=== PATIENT | female | born 1985 | race Caucasian/White ===

== ENCOUNTER 2018-05-14 01:54 | Observation (INO) | payer OTHER ==
[~2018-05-14] VITALS: Ht 149.9 cm; Wt 46.7 kg
[2018-05-14] VITALS (128 sets, daily range): BP systolic 82–100; BP diastolic 41–59; PULSE 111–119; TEMP 97.9; O2SAT 92–99
[2018-05-14 02:10] LABS: BASO # 0.1 (0.0-0.2); BASO % 0.8 % (0.0-2.0); EOS # 0.3 (0.0-0.7); EOS % 3.5 % (0-4.0); GRAN # 4.2 (1.4-6.5); GRAN % 49.9 % (42.2-75.2); HEMATOCRIT 39.3 % (37.0-47.0); HEMOGLOBIN 13.5 g/dl (12.5-16.0); LYMPH % 35.4 % (20.0-51.0); MEAN CELL VOLUME 94 fl (80.0-100.0); MEAN CORPUSCULAR HEMOGLOBIN 32 pg (27.0-31.0); MEAN CORPUSCULAR HGB CONC 34 g/dl (33.0-37.0); MEAN PLATELET VOLUME 9.9 fl (7.4-10.4); MONO # 0.9 (0.1-0.6); MONO % 10.2 % (1.7-9.3); PLATELET COUNT 220 K/mm3 (130-400); RED BLOOD COUNT 4.18 M/mm3 (4.10-5.30); REDCELL DISTRIBUTION WIDTH-CV 12.8 % (11.5-14.5)
[2018-05-14] MEDS ORDERED: TOPAMAX 25MG25 M1 PO (02:12)
[2018-05-14 02:24] LABS: ALBUMIN 4.6 gm/dL (3.5-5.0); BILIRUBIN,TOTAL 0.2 mg/dL (0.0-1.0); CALCIUM 9.3 mg/dL (8.4-10.2); CREATININE, serum 0.58 mg/dL (0.52-1.25); MAGNESIUM 2.2 mg/dL (1.6-2.3); PHOSPHOROUS 3.6 mg/dL (2.5-4.5); POTASSIUM 3.6 mmol/L (3.4-5.0); TOTAL PROTEIN 7.4 gm/dL (6.4-8.2)
[2018-05-14 02:39] LABS: PROLACTIN 53.5 ng/mL (3.0-18.6)
[2018-05-14 03:06] LABS: COLLECTION METHOD CATHETER
[2018-05-14] MEDS ORDERED: CYMBALTA 20MG20 MG PO (03:08)
[2018-05-14] MEDS ORDERED: RESTORIL 1515 MG/CAP PO (03:08)
[2018-05-14] MEDS ORDERED: ALDACTONE 25MG25 M1 PO (03:08)
[2018-05-14] MEDS ORDERED: ATIVAN 1MG T1 MG/TAB PO (03:09)
[2018-05-14 03:12] LABS: PH 6 (5-8); SQUAMOUS EPITHELIAL 0-2 /hpf; URINE APPEARANCE Clear; URINE BACTERIA None Seen /hpf; URINE BILIRUBIN Negative (NEGATIVE); URINE BLOOD Negative (NEGATIVE); URINE COLOR Straw; URINE GLUCOSE Negative (NEGATIVE); URINE KETONE Negative (NEGATIVE); URINE LEUKOCYTE ESTERASE Negative (NEGATIVE); URINE NITRATE Negative (NEGATIVE); URINE PROTEIN(semi-quant) Negative (NEGATIVE); URINE RBC None Seen /hpf; URINE UROBILINOGEN Negative (NEGATIVE)
[2018-05-14 03:18] LABS: TRICYCLIC ANTIDEPRESS URINE NEGATIVE
[2018-05-14] MEDS ORDERED: VOLTAREN GEL 1%1 TU TP (05:34)
[2018-05-14] MEDS ORDERED: MAXALT MLT10 MG/TAB SL (05:35)
[2018-05-14] MEDS ORDERED: VYVANSE30 MG PO (05:36)
[2018-05-14] MEDS ORDERED: NICODERM C21 MG/PATC TD (05:39)
[2018-05-14] MEDS ORDERED: NICORETTE4 MG PO (05:40)
[2018-05-14] MEDS ORDERED: IBU600 MG PO (05:41)
[2018-05-14] MEDS ORDERED: ZOFRAN8 MG PO (05:42)
[2018-05-14] MEDS ORDERED: RETIN A TP (05:50)
== END 2018-05-14 08:45 | disposition left against medical advice (07) ==
LOC: COL.ER 01:54 → ICU 03:58
PROVIDERS: Emergency Medicine
DX: G40.89 Other seizures (principal); S06.9X0A Unspecified intracranial injury without loss of consciousness, initial encounter; F10.129 Alcohol abuse with intoxication, unspecified; F17.210 Nicotine dependence, cigarettes, uncomplicated; F90.9 Attention-deficit hyperactivity disorder, unspecified type; R00.0 Tachycardia, unspecified; G47.00 Insomnia, unspecified; G43.909 Migraine, unspecified, not intractable, without status migrainosus; R63.0 Anorexia; Z91.5 Personal history of self-harm; Z88.2 Allergy status to sulfonamides
CPT/HCPCS: G0378; G0463; J7030